=== PATIENT | female | born 1970 | race Caucasian/White ===

== ENCOUNTER → 2016-11-15 | Outpatient (CLI) | payer OTHER ==
[~2016-11-15] MED LIST: MULTCAP11 PO; PERC7.5T12 PO
--- NOTE | 2016-11-15 16:19 | REPMRS ---
Patient History The patient states she has not had a clinical breast exam in over a year. Family history of unknown cancer in paternal grandfather at age 50 or over. Took hormonal contraceptives for 5 years. Patient has lost 45 pounds intentionally since last mammo. Digital Mammo Screening Bilat: November 15, 2016 - Exam #: [id number] Bilateral CC and MLO view(s) were taken. Technologist: Ila Solomon, Technologist Prior study comparison: May 13, 2015, digital bilateral screening mammo, performed at [facility]. April 10, 2014, digital woman screen mammo, performed at [facility]. September 12, 2012, digital woman screen mammo, performed at [facility]. FINDINGS: There are scattered fibroglandular densities. There has been no change in the appearance of the mammogram from the prior studies. There is a mild amount of scattered fibroglandular density which is fairly symmetric. There is no interval development of dominant mass, architectural distortion, or clustered microcalcification suggestive of malignancy. ASSESSMENT: BI-RADS/ACR category 1 mammogram. Negative. Recommendation Routine screening mammogram in 1 year (for women over age 40). This mammogram was interpreted with the aid of an FDA-approved computer-aided dectection system. Electronically Signed By: Aidan Bowen MD 11/15/16 5510
== END ==
LOC: M RAD 14:22
PROVIDERS: ATTEND Internal Medicine
DX: Z12.31 Encounter for screening mammogram for malignant neoplasm of breast (principal)